=== PATIENT | male | born 1985 ===

== ENCOUNTER 2018-03-14 21:06 | Emergency (ER) | payer OTHER ==
[~2018-03-14] VITALS: Ht 180.3 cm; Wt 95.3 kg
[~2018-03-14 21:06] MED LIST: FLONASE16 GM NASAL; ZYRTEC10 MG PO
[2018-03-14] MEDS ORDERED: CEFADROXIL500 MG (23:34)
[2018-03-16] MEDS ORDERED: NORVASC2.5 M1 (16:18)
[2018-03-16] MEDS ORDERED: LEVAQUIN750 MG (16:18)
[2018-03-16] MEDS ORDERED: LIPITOR20 MG (16:18)
== END 2018-03-15 05:33 | disposition home or self-care (01) ==
LOC: ER 21:06
DX: L03.116 Cellulitis of left lower limb (principal)

== ENCOUNTER 2018-03-16 15:42 | Emergency (ER) | payer OTHER ==
[~2018-03-16] VITALS: Ht 180.3 cm; Wt 95.3 kg
[~2018-03-16 15:42] MED LIST changes: +CEFADROXIL500 MG
[2018-03-16] MEDS ORDERED: LIPITOR20 MG (16:18)
[2018-03-16] MEDS ORDERED: LEVAQUIN750 MG (16:18)
[2018-03-16] MEDS ORDERED: NORVASC2.5 M1 (16:18)
== END 2018-03-16 22:44 | disposition home or self-care (01) ==
LOC: ER 15:42
DX: L03.116 Cellulitis of left lower limb (principal)